=== PATIENT | female | born 1965 | race Caucasian/White ===

== ENCOUNTER 2017-09-20 16:36 | Emergency (ER) | payer BC ==
[~2017-09-20] VITALS: Ht 175.3 cm; Wt 76.6 kg
[2017-09-20 17:21] LABS: HEMATOCRIT 37.4 % (36.0-46.0); HEMOGLOBIN 13.7 G/DL (11.9-15.5); MCH 32.3 PG (29.0-34.0); MCHC 36.6 G/DL (30.0-36.0); MCV 88.2 FL (83-99); PLATELET COUNT 266 K/uL (156-360); RBC DIS.WIDTH-CV 11.8 % (11.8-14.6); RBC DIS.WIDTH-SD 37.9 % (39-53); RED BLOOD COUNT 4.24 M/uL (3.80-5.20)
[2017-09-20 17:33] LABS: ALBUMIN 4.6 g/dL (3.2-4.8)
[2017-09-20 17:34] LABS: CHLORIDE 89 mEq/L (99-109); POTASSIUM 4.4 mEq/L (3.7-5.4); SODIUM 122 mEq/L (136-147)
[2017-09-20 17:36] LABS: GLUCOSE 111 mg/dL (70-99); TOTAL PROTEIN 7.9 g/dL (6.4-8.3)
[2017-09-20 17:38] LABS: TOTAL BILIRUBIN 0.8 mg/dL (0.0-1.0)
[2017-09-20 17:39] LABS: ALKALINE PHOSPHATASE 35 IU/L (3-129)
[2017-09-20 17:40] LABS: GFR ESTIMATE (CALCULATED) > 59 mL/min/
[2017-09-20 17:41] LABS: AST (GOT) 33 IU/L (2-34); UREA NITROGEN (BUN) 5 mg/dL (9-23)
[2017-09-20 17:43] LABS: ALT (GPT) 30 IU/L (3-49); LIPASE 19 U/L (1.0-51.0)
[2017-09-20 19:44] LABS: GFR ESTIMATE (CALCULATED) > 59 mL/min/
[2017-09-20 19:45] LABS: UREA NITROGEN (BUN) 7 mg/dL (9-23)
[2017-09-20 20:04] LABS: POTASSIUM 4.7 mEq/L (3.7-5.4); SODIUM 127 mEq/L (136-147)
[2017-09-20 20:05] LABS: GLUCOSE 94 mg/dL (70-99)
[2017-09-20 20:09] LABS: CREATININE 0.9 mg/dL (0.6-1.3)
[2017-09-20 20:20] LABS: CHLORIDE 99 mEq/L (99-109)
[2017-09-20 20:26] VITALS: BP 169/100
== END 2017-09-20 20:27 | disposition home or self-care (01) ==
LOC: EME 16:36
PROVIDERS: Nurse Practitioner Family
DX: E87.1 Hypo-osmolality and hyponatremia (principal); R10.11 Right upper quadrant pain; R11.0 Nausea; Z88.0 Allergy status to penicillin
CPT/HCPCS: 74177; 80048 91; 80053; 83690; 85027; 99281; 99284; J7030